=== PATIENT | male | born 1940 | race Caucasian/White ===

== ENCOUNTER → 2022-10-25 17:45 | Outpatient (CLI) | payer MEDICARE, SELFPAY ==
[2022-10-25 18:49] LABS: Influenza A - CEPHEID Flu A NEGATIVE (NEGATIVE); Influenza B - CEPHEID Flu B NEGATIVE (NEGATIVE); Respiratory Syncytial Virus Negative (Negative)
[2022-10-25 19:04] LABS: COVID-19 CEPHEID 4-PLEX PCR Negative (Negative)
== END ==
PROVIDERS: Visit Provider Physician Assistant
DX: Z20.822 Contact with and (suspected) exposure to COVID-19 (principal); R09.81 Nasal congestion; R19.7 Diarrhea, unspecified; R31.9 Hematuria, unspecified; R53.81 Other malaise
CPT/HCPCS: 0241U; 87086

== ENCOUNTER → 2022-10-25 18:29 | Outpatient (CLI) | payer MEDICARE, SELFPAY ==
--- NOTE | 2022-10-25 18:37 | DI.RAD.S_ITS ---
PROCEDURE: XR CHEST 2V INDICATIONS: Cough TECHNIQUE: 2 views of the chest were acquired. COMPARISON: None. FINDINGS: Surgical changes and devices: Cholecystectomy clips are seen. Lungs and pleura: An incomplete inspiratory result is noted, causing a crowded appearance to the lung markings. No focal infiltrates are seen. No pneumothorax or significant pleural effusions are seen. Mediastinum: The cardiac contours are within normal limits. The aorta demonstrates calcification and tortuosity. Bones and chest wall: No suspicious bony abnormalities. Age-appropriate bony degenerative changes are seen. Accentuated thoracic kyphosis is seen. Soft tissues appear unremarkable. IMPRESSION: Low lung volumes, without a focal infiltrate seen. Postoperative and degenerative changes are seen. Dictated by: Pete Heart M.D. on 10/25/2022 at 18:49 Approved by: Pete Heart M.D. on 10/25/2022 at 18:50
== END ==
PROVIDERS: Visit Provider Physician Assistant
DX: R05.9 Cough, unspecified (principal); Z20.822 Contact with and (suspected) exposure to COVID-19; R09.81 Nasal congestion; R19.7 Diarrhea, unspecified; R31.9 Hematuria, unspecified; R53.81 Other malaise
CPT/HCPCS: 0241U; 71046; 81002; 87086; C9803

== ENCOUNTER → 2022-10-28 14:58 | Outpatient (CLI) | payer MEDICARE, SELFPAY ==
[2022-10-28 16:26] LABS: Magnesium 1.8 mg/dL (1.6-2.3)
== END ==
PROVIDERS: Referring Provider Internal Medicine Medical Oncology; Visit Provider Internal Medicine Medical Oncology
DX: C91.10 Chronic lymphocytic leukemia of B-cell type not having achieved remission (principal)
CPT/HCPCS: 36415; 83735